=== PATIENT | male | born 1955 | race Caucasian/White ===

== ENCOUNTER 2017-08-18 15:15 | Emergency (ER) | payer OTHER ==
[~2017-08-18] VITALS: Ht 177.8 cm; Wt 60.8 kg
[~2017-08-18 15:15] MED LIST: ACET500 PO; ALBU3IS INH; ARTANE PO; Augmentin 875-1 EACH PO; BROVANA; BUDE.25 NEB; BUDE.5 NEB; Brovana15 MCG/2 M INH; CEPH500 PO; CHOL10002 PO; CLON.5 PO; CLOZ100 PO; DOCU100 PO; ESCI20 PO; ESOM20 PO; FLUT.05NI; FLUTICASONE SPRAY; IBUP800 PO; LACT10SY PO; LEVOXYL PO; LEVSOD50 PO; LOXA25 PO; Lisinopril2.5 MG; Lisinopril2.5 MG PO; Loxapine5 MG PO; Loxapine50 MG PO; METF500 PO; NYST100P TOP; NYST100SU MT; OMEG1CAP30; OMEG1CAP30 PO; OXYB5 PO; PANT40 PO; PSYL5.85P PO; Patanase30.5 GM NS; ROSU10TA PO; ROSU5 PO; RXCEPH500 PO; SOLI5 PO; TRAZ50 PO
[2017-08-18 15:47] LABS: BASOPHILS ABSOLUTE AUTO 0.03 K/mm3 (0.00-0.23); BASOPHILS PERCENT AUTO 0 % (0-2); EOSINOPHILS PERCENT AUTO 0 % (0-6); Hematocrit 41.1 % (37.0-53.0); Hemoglobin 13.3 g/dL (13.5-17.5); IMMATURE GRAN ABSOLUTE AUTO 0.09 K/mm3 (0.00-0.10); IMMATURE GRAN PERCENT AUTO 1 % (0-1); LYMPHOCYTES ABSOLUTE AUTO 0.74 K/mm3 (0.84-5.20); LYMPHOCYTES PERCENT AUTO 6 % (21-46); MONOCYTES ABSOLUTE AUTO 0.61 K/mm3 (0.16-1.47); MONOCYTES PERCENT AUTO 5 % (4-13); Mean Corpuscular HGB 31.1 pg (26.0-34.0); Mean Corpuscular HGB Conc 32.4 g/dL (31.5-36.5); Mean Corpuscular Volume 96 fL (80-100); Mean Platelet Volume 9.3 fL (9.1-12.4); NEUTROPHILS ABSOLUTE AUTO 10.78 K/mm3 (1.96-9.15); NEUTROPHILS PERCENT AUTO 88 % (41-73); Platelet Count 229 K/mm3 (150-400); RDW Coefficient Variation 12.9 % (11.7-14.2); Red Blood Cell Count 4.28 M/mm3 (4.30-5.90); White Blood Cell Count 12.25 K/mm3 (4.00-11.30)
[2017-08-18 16:05] LABS: Alanine Aminotransfer (ALT/SGP 28 U/L (12-78); Albumin, Blood 3.8 g/dL (3.4-5.0); Albumin/Globulin Ratio 1.2 (0.8-1.8); Alk Phos 105 U/L (50-136); Anion Gap 9 mmol/L (6-16); Aspartate Aminotrans (AST/SGOT 22 U/L (12-37); Bilirubin, Total 0.4 mg/dL (0.1-1.0); Blood Urea Nitrogen 17 mg/dL (8-24); CO2, Blood 26 mmol/L (21-32); Chloride, Blood 103 mmol/L (98-108); Creatinine, Blood 0.94 mg/dL (0.60-1.20); Globulin, Blood 3.3 g/dL (2.2-4.0); Glomerular Filtration Rate >60 (60-); Glucose, Blood 239 mg/dL (70-99); Potassium, Blood 3.6 mmol/L (3.5-5.5); Sodium, Blood 138 mmol/L (136-145); Total Protein, Blood 7.1 g/dL (6.4-8.2)
== END 2017-08-18 18:00 | disposition home or self-care (01) ==
LOC: ER 15:15
PROVIDERS: Emergency Medicine
DX: S00.83XA Contusion of other part of head, initial encounter (principal); Z23 Encounter for immunization; F17.210 Nicotine dependence, cigarettes, uncomplicated; Z79.84 Long term (current) use of oral hypoglycemic drugs; Z79.899 Other long term (current) drug therapy; W22.8XXA Striking against or struck by other objects, initial encounter; Y92.002 Bathroom of unspecified non-institutional (private) residence as the place of occurrence of the external cause
CPT/HCPCS: 36415; 70450; 72125; 80053; 84484; 85025; 90471; 90714; 93005; 93010; 99284; J7030

== ENCOUNTER 2018-07-05 18:35 | Emergency (ER) | payer OTHER ==
[~2018-07-05] VITALS: Ht 177.8 cm; Wt 80.3 kg
== END 2018-07-05 19:41 | disposition home or self-care (01) ==
LOC: ER 18:35
DX: Z04.1 Encounter for examination and observation following transport accident (principal); Z79.84 Long term (current) use of oral hypoglycemic drugs; Z79.899 Other long term (current) drug therapy; F17.200 Nicotine dependence, unspecified, uncomplicated
CPT/HCPCS: 99282

== ENCOUNTER 2019-05-31 16:29 | Inpatient (IN) | payer OTHER ==
[~2019-05-31] VITALS: Ht 177.8 cm; Wt 71.2 kg
[~2019-05-31 16:29] MED LIST changes: -IBUP400 PO; -MORP20L SL; -Pedi-Dri 100,0060 GM PO; -Pravachol40 MG PO; -Prozac20 MG PO
[2019-05-31] MEDS ORDERED: Pravachol40 MG PO (17:01)
[2019-05-31] MEDS ORDERED: Prozac20 MG PO (18:22)
[2019-05-31] MEDS ORDERED: Pedi-Dri 100,0060 GM PO (18:25)
[2019-05-31] MEDS ORDERED: IBUP400 PO (18:26)
[2019-05-31] MEDS ORDERED: ACET500 PO (18:26)
[2019-05-31 18:54] LABS: International Normalized Ratio 1.02; Prothrombin Time Results 10.9 Sec (9.7-11.5)
[2019-05-31 19:12] LABS: Cholesterol 129 mg/dL (50-200); HDL Cholesterol 32 mg/dL (>39); Lactate Dehydrogenase (Ld),Bld 288 U/L (100-240); Low Density Lipoprotein Chol 64 mg/dL (0-110); Triglycerides 163 mg/dL (30-160); Very Low Density Lipoprot Chol 32 mg/dL (6-32)
[2019-05-31 19:38] LABS: Automated BF RBC Count 0.094 M/mm3 (0-0); Automated BF WBC Count 0.725 K/mm3 (0-999); Body Fluid WBC Count 725 /mm3 (0-999); RBC Count, Body Fluid 94000 /mm3 (0-0)
[2019-05-31 20:00] LABS: Total Cell Count, Body Fluid 100
[2019-05-31 20:04] LABS: Appearance, Body Fluid Cloudy (Clear); Color, Body Fluid Red (None-Yellow)
[2019-05-31 20:05] LABS: Albumin, Body Fluid 1.8 g/dL; Glucose, Body Fluid 28 mg/dL; Lactate Dehydrogenase, Body Fl 581 U/L; Protein, Body Fluid 4.3 g/dL; Triglycerides, Body Fluid 54 mg/dL
[2019-05-31 20:28] LABS: pH, Body Fluid 7.5
--- NOTE | 2019-06-01 05:04 | NUR ---
PT ABLE TO STAND AT BEDSIDE TO USE URINAL
--- NOTE | 2019-06-01 05:39 | NUR ---
PT WHEEZING AFTER STANDING TO USE URINAL, RT CALL FOR BREATHING TREATMENT
--- NOTE | 2019-06-01 06:20 | NUR ---
PT ALERT BUT FORGETFUL UPON WAKING UP. WHEEZING WITH EXERTION. RT GAVE TREATMENT. ON 5L NC. C/O OF RIGHT LEG PAIN, REFUSED IV PAIN MEDICTION. TYLENOL NOT EFFECTIVE, NORCO 5/325 GIVEN. STANDS TO VOID IN URNIAL BUT BECOMES SOB AFTER AND MUST LAY DOWN TO RECOVER. BP ON THE LOW END. TROP AND AM LABS DRAW AT 0630.
[2019-06-01 06:49] LABS: Hematocrit 34.2 % (37.0-53.0); Hemoglobin 10.9 g/dL (13.5-17.5); Mean Corpuscular HGB 29.4 pg (26.0-34.0); Mean Corpuscular HGB Conc 31.9 g/dL (31.5-36.5); Mean Corpuscular Volume 92 fL (80-100); Mean Platelet Volume 8.9 fL (9.1-12.4); Platelet Count 362 K/mm3 (150-400); RDW Coefficient Variation 13.2 % (11.7-14.2); RDW Standard Deviation 44.4 fL (35.1-46.3); Red Blood Cell Count 3.71 M/mm3 (4.30-5.90); White Blood Cell Count 8.98 K/mm3 (4.00-11.30)
[2019-06-01 07:06] LABS: Anion Gap 5 mmol/L (6-16); Blood Urea Nitrogen 10 mg/dL (8-24); Bun/Creatinine Ratio 15.8 (12.0-20.0); CO2, Blood 31 mmol/L (21-32); Calcium, Blood 8.2 mg/dL (8.5-10.1); Chloride, Blood 104 mmol/L (98-108); Creatinine, Blood 0.63 mg/dL (0.60-1.20); Glomerular Filtration Rate >60 (60-); Glucose, Blood 115 mg/dL (70-99); Potassium, Blood 3.4 mmol/L (3.5-5.5); Sodium, Blood 140 mmol/L (136-145)
--- NOTE | 2019-06-01 07:42 | NUR ---
ASSUMED CARE: REPORT RECEIVED FROM ALLEGRA Hodge RN. ASSUMED CARE OF THIS PT AT APPROX 0700. ON ASSESSMENT, THE PT IS AWAKE, A&O. DENIES CURRENT PAIN TO R LEG, STS PAIN BEGAN APPROX 1 MO. AGO. HIS SPEECH IS SOMEWHAT DIFFICULT TO UNDERSTAND & HE REQUIRES FREQUENT REORIENTATION TO HIS SURROUNDINGS. LS ARE DIM, PT ON 5L NC W/ O2 SATS > 92%. MONITOR SHOWS SR W/ HR 90s, SBP 90-100s, PT ASYMPTOMATIC OF THIS. NO GI/ COMPLAINTS. WILL CONTINUE TO MONITOR & UPDATE NEEDED.
--- NOTE | 2019-06-01 08:20 | NUR ---
DR FRIED: PROVIDER AT BEDSIDE TO EVAL PT. NO NEW ORDERS OR CHANGES AT THIS TIME. WILL CONTINUE TO MONITOR & UPDATE NEEDED.
--- NOTE | 2019-06-01 10:01 | NUR ---
THORACENTESIS: US TECH & RADIOLOGIST AT BEDSIDE TO COMPLETE US GUIDED THORACENTESIS. 1.5L FLUID REMOVED DURING PROCEDURE.
--- NOTE | 2019-06-01 15:11 | NUR ---
DR RONQUILLO: PROVIDER HAS BEEN AT BEDSIDE TO EVAL PT. SHE STS SHE WOULD LIKE A PIGTAIL DRAIN PLACED TO PT's RECURRENT PLEURAL EFFUSION. VENOUS US ALSO ORDERED R/T PT's CONTINUED C/O R LEG PAIN. NOTIFIED HER THAT RESULTS ARE NEGATIVE FOR DVT PER US TECH. RADIOLOGIST CURRENTLY AT BEDSIDE TO PLACE PIGTAIL DRAIN. WILL CONTINUE TO MONITOR & UPDATE NEEDED.
--- NOTE | 2019-06-01 18:08 | NUR ---
SHIFT SUMMARY: NO ACUTE CHANGES THIS SHIFT. PT REMAINS A&O TO SELF & FOLLOWING DIRECTION BUT REQUIRES FREQUENT REDIRECTING. MENTATION IS CHILDLIKE. 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 LS REMAIN DIM T/O, PIGTAIL DRAIN TO R POSTERIOR CHEST WALL W/ COPIOUS AMNTS SS OUTPUT. ORDERS TO TURN STOPCOCK TO OFF POSITION ONCE 2L DRAINED SINCE PLACEMENT. PT ON 2L NC W/ O2 SATS > 92%, DESATS NOTED TO 85% ON RA. MONITOR SHOWS SR-ST W/ PVCs, HR 90-100s. NO GI/ COMPLAINTS. SKIN OVERALL CDI. WILL CONTINUE TO MONITOR & REPORT OFF TO ONCOMING RN.
--- NOTE | 2019-06-01 18:29 | NUR ---
Inital spiritual care note: Per admit trigger, I was tasked to meet with pt and/or family to offer information about ACP. Bridger is developmentally delayed and very sweet. He appeared to enjoy companionship and the Jello I brought him while we spoke. Bridger smiles easily and denied pain or worry. Clearly, he is unable to grasp implications of an advanced care planning tool. I will remain available.
--- NOTE | 2019-06-01 21:00 | NUR ---
ASSUMED CARE OF PT AFTER BEDSIDE REPORT. PT IS ALERT, LYING W HOB ELEVATED. FOLLOWS ACTIVITY IN UNIT, AND HAS ASKED FOR HIS NIGHT TIME MEDS. PLEASANT W MILD ANXIETY NOTED. R POSTERIOR THORACIC DRAIN IS CLAMPED PER ORDER, WELL SECURED W STATLOCK & CLEAR OCCLUSIVE DRSG. O2 2LNC, EXP WHEEZES & CONT DIMINISHED R BASE. NO COUGH NOTED. CO R LEG PAIN & FOOT. WILL GIVE NORCO W HS MEDS.
--- NOTE | 2019-06-02 04:55 | NUR ---
MED X2 W NORCO FOR R LEG PAIN. NO SWELLING OR OBVIOUS CONCERN TO ASSOCIATE W PT CO PAIN. PT STATES HE HAS HAD THIS FOR SOME TIME & STATES "I HOPE IT IS OK". PT HAS SIMPLE MENTATION, BUT HAS BEEN PLEASANT & APPRECIATIVE OF CARE. STANDS TO VOID W SB ASSIST & ABLE TO ASSIST W REPOSITIONING IN BED. O2 HAS BEEN TITRATED UP TO 4L NC DURING NOC. NOTED W 'NIGHT SWEATS' TONIGHT. REQUIRING PARTIAL LINEN CHANGE.
[2019-06-02 07:51] LABS: Hematocrit 35.4 % (37.0-53.0); Hemoglobin 11.1 g/dL (13.5-17.5)
[2019-06-02 08:04] LABS: Anion Gap 4 mmol/L (6-16); Blood Urea Nitrogen 6 mg/dL (8-24); Bun/Creatinine Ratio 9.1 (12.0-20.0); CO2, Blood 34 mmol/L (21-32); Calcium, Blood 8.5 mg/dL (8.5-10.1); Chloride, Blood 103 mmol/L (98-108); Creatinine, Blood 0.66 mg/dL (0.60-1.20); Glomerular Filtration Rate >60 (60-); Glucose, Blood 122 mg/dL (70-99); Potassium, Blood 3.4 mmol/L (3.5-5.5); Sodium, Blood 141 mmol/L (136-145)
--- NOTE | 2019-06-02 08:45 | NUR ---
DR. FRIED AT BEDSIDE. NO NEW ORDERS NOTED.
--- NOTE | 2019-06-02 11:20 | NUR ---
DRESSING ON R POSTERIOR BACK IS SATURATED AND STAT LOCK HOLDING PIGTAIL DRAIN IN PLACE IS BEGINNING TO SLIDE. REMOVED DRESSING AND STAT LOCK. CLEANED AREA WITH ALCOHOL PADS AND ALLOWED TO AIR DRY. COVERED INSERTION SITE WITH FOLDED 4X4 AND COVERED WITH LARGE TEGADERM. PT TOLERATED WELL.
--- NOTE | 2019-06-02 16:06 | NUR ---
GAVE TELPHONE REPORT TO Kenney GOMEZ RN ON MEDICAL FLOOR. TRANSFERRED PATIENT VIA HIS BED TO ROOM 305 AT 1548. ALL BELONGINGS TRANSPORTED WITH PATIENT.
--- NOTE | 2019-06-02 18:35 | NUR ---
SUMMARY PT TRANSFERRED UP FROM ICU, PT PLEASANT AND COOPERATIVE, PT HAS A PIGTAIL DRAIN CHEST TUBE TO HIS R POSTERIOR BACK, DRAINING SEROSANGUINEOUS FLUID, DRESSING TO INSERTION SITE SATURATED AND CHANGED ONCE BY THIS RN, PT LYNSEY WELL, PIGTAIL DRAIN CURRENTLY CLAMPED, NEEDS TO BE UNCLAMPED AND DRAINED EVERY 8 HOURS OR SO AND ONLY 650 MLS OR SO, PER THE MOTION PICTURE PROJECTIONIST, VSS, NO ACUTE CHANGES, WILL CONT TO MONITOR
--- NOTE | 2019-06-03 07:06 | NUR ---
pt with cognitive impairment prema, cooperative with meds. fall risk and aspiration risk. continent and incontinet. xray here this am for cxr and RNS in report. PT found to have removed small bore chest tube with tip intact. Day RN to notify
--- NOTE | 2019-06-03 07:18 | NUR ---
CHEST TUBE PT PULLED OUT PIGTAIL CHEST TUBE DRAIN, NOTIFIED DR FRIED AND DR NAJERA
--- NOTE | 2019-06-03 17:09 | NUR ---
SUMMARY PT RESTING IN BED WATCHING TV, PT HAS BEEN PLEASANT AND COOPERATIVE WITH CARE, OCC NEEDS REMINDERS TO USE THE CALL LIGHT OR OTHER INSTRUCTIONS, PT PULLED OUT HIS CHEST TUBE FIRST THING THIS MORNING, HAS TOLERATED IT WELL, PT PULLED OUT ONE OF HIS IV'S THIS EVENING WELL, PT REPORTS HE WOULD LIKE TO RETURN HOME, AWAITING ONCOLOGY CONSULT, VSS, NO ACUTE CHANGES, WILL CONT TO MONITOR
--- NOTE | 2019-06-04 05:30 | NUR ---
SHIFT SUMMARY PT HAS BEEN RESTLESS FOR MOST OF THE SHIFT. HE IS VERY FORGETUL AND NEEDS CONSTANT REMINDERS. HE REMOVES HIS O2 CONSTANTLY DESPITE BEING REMINDED TO KEEP IT IN PLACE. PT DESATS QUICKLY BELOW 90% WITHOUT NC. PT HAS A DIFFICULT TIME MAKING NEEDS KNOWN. MEDICATED FOR LEG PAIN X1 THIS SHIFT WITH AFFECT. PT HAS BEEN PLESANT WITH CARE. NEW IV STARTED TO RIGHT HAND. INDEPENDENT WITH URINAL AT BEDSIDE. NO ACUTE CHANGES THIS SHIFT. BED IN LOWEST POSITION, CALL LIGHT WITHIN REACH. WILL CONTINUE TO MONITOR AND REPORT TO ONCOMING RN.
--- NOTE | 2019-06-04 07:02 | NUR ---
LOW GRADE FEVER THIS AM WITH ORAL TEMP. PT TEMPERATURE IS BUMPED ALL THE WAY UP IN ROOM. TEMP DECREASED TO SEE IF THAT WOULD HAVE AN EFFECT. DAYSTHEE RN NOTIFIED.
--- NOTE | 2019-06-04 11:35 | NUR ---
Rec'd call from pt's RN, Keri, who states she spoke with Bridger Crane and updated him on Dr. Baptiste's consultation. Keri states Bridger Crane has questions re: hospice and would like PC nurse to call him. Phone call to Bridger Crane He reports that he understands his son's terminal cancer diagnosis and is "concerned about him being comfortable." Reviewed Dr. Baptiste's consultation note with Bridger Cristina. He states that his son watched his mother of cancer without hospice support and that this was very difficult on both of them. He doesn't want Bridger to suffer. Explained hospice services and what that could look like for Bridger's care. Bridger Crane stated "I'm for this. (hospice)" He has chosen [facility] and would like Bridger to return to his current [facility] with hospice services if possible. He reports Bridger is well cared for and feels at home with a sense of purpose there. He would like Bridger to be able to continue to do some of the things he enjoys for as long as he can. Explained that over time Bridger's abilities will lessen as his cancer progresses. Bridger Cranevoiced his understanding of this. Answered all his questions. Bridger states he hasn't been able to get a hold of Kenzie at the [facility] over the past few days and worries that Bridger may not be able to go back to her [facility]. Explained to Bridger that this story writer would contact CM RN and they will speak with [facility] staff to see if Bridger can return with hospice services. Bridger Crane asked to be updated once a decision has been made re: being able to return to his AF with hospice. Bridger Crane states that he is unable to care for Bridger in his home. He is 86 and lives alone. Informed him that either CM or this story writer would contact him with an update once CM staff has spoken with [facility] staff. will plan to update nursing, MD and CM of Nina Crane desire to pursue [facility] services at the [facility] Bridger is currently living in.
[2019-06-04] MEDS ORDERED: MORP20L SL (14:52)
--- NOTE | 2019-06-04 15:10 | NUR ---
SUMMARY/DISCHARGE PT DISCHARGED TO HOSPICE BACK TO HIS ADULT [facility] HOME WITH RIOS GARCIA, PT TAKEN OUT SAFELY VIA WHEELCHAIR
--- NOTE | 2019-06-04 15:27 | NUR ---
NOTIFIED PT'S FATHER THAT HE WAS ON HIS WAY BACK HOME
== END 2019-06-04 15:17 | disposition hospice, home (50) | DRG 180 ==
LOC: ER 16:29 → MEDS 17:36 → ICUW 17:36 → MEDS 06-02 15:45
PROVIDERS: Nurse Practitioner Acute Care; ADMIT Internal Medicine
PROC: 0W9930Z Drainage of Right Pleural Cavity with Drainage Device, Percutaneous Approach (ICD-10-PCS; principal; 2019-06-01)
DX: C34.2 Malignant neoplasm of middle lobe, bronchus or lung (principal); J96.01 Acute respiratory failure with hypoxia; C79.51 Secondary malignant neoplasm of bone; J91.0 Malignant pleural effusion; Z51.5 Encounter for palliative care; J44.9 Chronic obstructive pulmonary disease, unspecified; E78.5 Hyperlipidemia, unspecified; E87.6 Hypokalemia; E03.9 Hypothyroidism, unspecified; F20.9 Schizophrenia, unspecified; E11.9 Type 2 diabetes mellitus without complications; F17.210 Nicotine dependence, cigarettes, uncomplicated; G47.33 Obstructive sleep apnea (adult) (pediatric); Z66 Do not resuscitate; K21.9 Gastro-esophageal reflux disease without esophagitis; Z87.820 Personal history of traumatic brain injury
CPT/HCPCS: 32555; 36415; 49405; 71045; 71046; 71260; 74177; 80048; 80053; 80061; 82042; 82945; 82947; 83605; 83615; 83880; 83986; 84145; 84157; 84478; 84484; 85014; 85018; 85025; 85027; 85379; 85610; 85730; 87040; 87070; 87205; 88108; 88305; 88341; 88342; 89051; 93005; 93010; 93971; 94640; 94760; 94762; 96365-59; 96375; 99285-25; A9270; A9270-GY; J0456; J0696; J3480; J7050; Q9967

== ENCOUNTER → 2019-05-31 | Outpatient (CLI) | payer OTHER ==
[~2019-05-31] MED LIST changes: -BUDE.25 NEB; +BUDESONIDE1 MG/2 ML NEB; -Brovana15 MCG/2 M INH; +Brovana15 MCG/2 M NEB; +DUONEB NEB; +EUTHYROX50 MCG PO; +IBUP400 PO; -LEVOXYL PO; +MORP20L SL; +Pedi-Dri 100,0060 GM PO; +Pravachol40 MG PO; +Prozac20 MG PO; +Trihexyphenidyl5 MG PO; +VITAMIN D350 MCG PO
[2019-05-31 15:38] LABS: BASOPHILS ABSOLUTE AUTO 0.04 K/mm3 (0.00-0.23); BASOPHILS PERCENT AUTO 0 % (0-2); EOSINOPHILS PERCENT AUTO 0 % (0-6); Hematocrit 37.3 % (37.0-53.0); Hemoglobin 12.2 g/dL (13.5-17.5); IMMATURE GRAN ABSOLUTE AUTO 0.28 K/mm3 (0.00-0.10); IMMATURE GRAN PERCENT AUTO 2 % (0-1); LYMPHOCYTES ABSOLUTE AUTO 0.81 K/mm3 (0.84-5.20); LYMPHOCYTES PERCENT AUTO 5 % (21-46); MONOCYTES ABSOLUTE AUTO 0.78 K/mm3 (0.16-1.47); MONOCYTES PERCENT AUTO 5 % (4-13); Mean Corpuscular HGB 29.4 pg (26.0-34.0); Mean Corpuscular HGB Conc 32.7 g/dL (31.5-36.5); Mean Corpuscular Volume 90 fL (80-100); Mean Platelet Volume 8.9 fL (9.1-12.4); NEUTROPHILS PERCENT AUTO 88 % (41-73); Platelet Count 499 K/mm3 (150-400); RDW Coefficient Variation 13.2 % (11.7-14.2); Red Blood Cell Count 4.15 M/mm3 (4.30-5.90); White Blood Cell Count 16.31 K/mm3 (4.00-11.30)
[2019-05-31 15:53] LABS: Alanine Aminotransfer (ALT/SGP 22 U/L (12-78); Albumin, Blood 2.8 g/dL (3.4-5.0); Albumin/Globulin Ratio 0.7 (0.8-1.8); Alk Phos 125 U/L (40-126); Anion Gap 9 mmol/L (6-16); Aspartate Aminotrans (AST/SGOT 28 U/L (12-37); Bilirubin, Total 0.3 mg/dL (0.1-1.0); Blood Urea Nitrogen 15 mg/dL (8-24); Bun/Creatinine Ratio 12.9 (12.0-20.0); CO2, Blood 30 mmol/L (21-32); Calcium, Blood 8.7 mg/dL (8.5-10.1); Chloride, Blood 97 mmol/L (98-108); Creatinine, Blood 1.16 mg/dL (0.60-1.20); Globulin, Blood 4.3 g/dL (2.2-4.0); Glomerular Filtration Rate >60 (60-); Glucose, Blood 129 mg/dL (70-99); Potassium, Blood 3.6 mmol/L (3.5-5.5); Sodium, Blood 136 mmol/L (136-145); Total Protein, Blood 7.1 g/dL (6.4-8.2); Troponin I 0.018 ng/mL (0.000-0.040)
== END ==
LOC: LAB EV 15:29 → LAB SHORT 15:29
DX: R07.9 Chest pain, unspecified (principal)
CPT/HCPCS: 80053; 83880; 84484; 85025; 85379